=== PATIENT | female | born 1985 | race Two or more races ===

== ENCOUNTER 2020-12-15 20:36 | Emergency (ER) | payer SELFPAY ==
[~2020-12-15] VITALS: Ht 152.4 cm; Wt 68.2 kg
[2020-12-15 20:52] VITALS: Ht 152.4 cm; Wt 68.2 kg
[2020-12-15 21:37] LABS: BACTERIA MOD HPF (<MOD); BILIRUBIN NEGATIVE (NEGATIVE); KETONE 1+ mg/dL (< 1+); NITRITE POSITIVE (NEGATIVE); PH 5.5 (5.0-8.0); SQUAMOUS EPITHELIAL 1 HPF (0-4); UROBILINOGEN NORMAL mg/dL (< 2); WHITE CELLS - URINE 26 HPF (0-4)
[2020-12-16 01:54] LABS: BASOPHILS 0.4 % (0-2); EOSINOPHILS 0.5 % (0-7); HEMATOCRIT 41.8 % (36.0-48.0); HEMOGLOBIN 14.8 g/dL (12-16); LYMPHOCYTES 31.7 % (15-50); MCHC 35.3 g/dL (31.0-37.0); MCV 87.8 fL (80.0-100.0); MEAN PLATELET VOLUME 7.3 fL (7.4-10.4); MONOCYTES 8.4 % (2-11); PLATELET COUNT 281 10x3/uL (130-400); RBC 4.76 10x6/uL (4.00-5.40); WBC 5.8 10x3/uL (4.8-10.8)
[2020-12-16 02:07] LABS: ANION GAP 9.2 mmol/L (8-16); CALCIUM 8.9 mg/dL (8.5-10.1); CARBON DIOXIDE 29.5 mmol/L (21.0-32.0); POTASSIUM - SERUM 3.7 mmol/L (3.5-5.1)
[2020-12-16 02:15] LABS: ALBUMIN 4.2 g/dL (3.4-5.0); BILIRUBIN - TOTAL 0.86 mg/dL (0.2-1.3); PROTEIN - SERUM 8.3 g/dL (6.4-8.2)
[2020-12-16 02:27] LABS: HCG URINE NEGATIVE (NEGATIVE)
[2020-12-16] MEDS ORDERED: BACTRIM DS TAB1 EAC1 PO (03:08)
[2020-12-16] MEDS ORDERED: FLAGYL500 MG PO (03:08)
[2020-12-16 03:34] VITALS: BP 139/86
== END 2020-12-16 03:34 | disposition home or self-care (01) ==
LOC: D.ER 20:36
PROVIDERS: Emergency Medicine
DX: N76.0 Acute vaginitis (principal); N39.0 Urinary tract infection, site not specified